=== PATIENT | female | born 1955 | race Caucasian/White ===

== ENCOUNTER → 2019-11-18 | Outpatient (CLI) | payer MEDICARE, OTHER ==
[2019-11-19 07:33] LABS: Stool Occult Bld Immuno 1 Negative (NEGATIVE)
== END ==
LOC: LAB EV 05:30
PROVIDERS: Student in an Organized Health Care Education/Training Program
DX: Z12.11 Encounter for screening for malignant neoplasm of colon (principal); E03.9 Hypothyroidism, unspecified; I10 Essential (primary) hypertension
CPT/HCPCS: G0328

== ENCOUNTER → 2020-12-22 | Outpatient (CLI) | payer MEDICARE, OTHER ==
[2020-12-22 11:00] LABS: Stool Occult Bld Immuno 1 Negative (NEGATIVE)
== END | disposition home or self-care (01) ==
LOC: LAB EV 07:07 → LAB SHORT 07:07
PROVIDERS: Student in an Organized Health Care Education/Training Program
DX: Z12.11 Encounter for screening for malignant neoplasm of colon (principal)
CPT/HCPCS: G0328

== ENCOUNTER → 2021-08-22 | Outpatient (CLI) | payer MEDICARE, OTHER ==
[2021-08-27 18:09] LABS: METANEPHRINE, UR 51 ug/L (Undefined)
[2021-08-27 19:09] LABS: DOPAMINE, URINE 88 ug/L (Undefined)
== END | disposition home or self-care (01) ==
LOC: LAB SHORT 08:00
PROVIDERS: Internal Medicine Endocrinology, Diabetes & Metabolism
DX: I10 Essential (primary) hypertension (principal)
CPT/HCPCS: 82384; 83835

== ENCOUNTER 2022-05-23 05:55 | Day surgery (SDC) | payer MEDICARE, OTHER ==
[~2022-05-23] VITALS: Ht 160 cm; Wt 85.5 kg
[~2022-05-23 05:55] MED LIST: HYDROCHLOROTHIA25 MG PO; LEVSOD25 PO; LISI20 PO; METO100ER PO
--- NOTE | 2022-05-23 07:24 | NUR ---
Ambulatory in Day Surgery. Pre-Op teaching done. Pt verbalizes understanding. Patient confirms NPO status and agrees with scheduled surgery. Patient reports completing Chlorhexadine shower X2 prior to admission to hospital. Lungs clear T/O to Auscultation.
--- NOTE | 2022-05-23 08:47 | NUR ---
05/23/22 0847 Jose A Lazaro VANCOMYCIN STARTED PRE OPERATIVELY AT 0730
--- NOTE | 2022-05-23 11:15 | NUR ---
ARRIVAL PATIENT ARRIVED TO UNIT VIA BED. VSS ON ROOM AIR. LUNGS CLEAR. X2 BULKY DRESSINGS TO R HIP, POLAR PACK TO R HIP. PATIENT HAS FULL SENSATION TO BLE, WIGGLES TOES APPROPRIATELY. TOLERATING WATER AT THIS TIME. ORIENTED TO ROOM & CALL LIGHT, WITHIN REACH.
--- NOTE | 2022-05-23 18:09 | NUR ---
SHIFT SUMMARY POD 0 R TOMASZ. X2 BULKY DRESSINGS TO R HIP/THIGH. MINIMAL PAIN, MANAGED PER EMAR. AMBULATING WELL WITH 1P ASSIST W/ FWW & GB. EATING, DRINKING, & VOIDING WELL. CALLS APPROPRIATELY, CALL LIGHT IN REACH. WILL REPORT TO ONCOMING RN.
--- NOTE | 2022-05-24 04:45 | NUR ---
FURNITURE REPRODUCER SUMMARY PT IS POD 0 R HIP REPAIR. INCISIONS C/D/I, NO DRAINAGE NOTED TO SURGICAL DRESSINGS. PT HAS REPORTED MINIMAL PAIN THAT HAS BEEN CONTROLLED WITH SCHEDULED TORADOL/TYLENOL. PT HAS VOIDED AND HAS AMBULATED IN THE HALLS MULTIPLE TIMES TONIGHT WITH A STANDBY ASSIST AND FWW/GB. CONTINUES IV ABX PER EMAR. VSS, WILL CONTINUE TO MONITOR.
[2022-05-24 04:46] LABS: BASOPHILS ABSOLUTE AUTO 0.02 K/mm3 (0.00-0.23); BASOPHILS PERCENT AUTO 0 % (0-2); EOSINOPHILS ABSOLUTE AUTO 0.01 K/mm3 (0.00-0.68); EOSINOPHILS PERCENT AUTO 0 % (0-6); Hematocrit 32.8 % (33.0-51.0); IMMATURE GRAN ABSOLUTE AUTO 0.03 K/mm3 (0.00-0.10); IMMATURE GRAN PERCENT AUTO 0 % (0-1); LYMPHOCYTES PERCENT AUTO 15 % (21-46); MONOCYTES ABSOLUTE AUTO 1.09 K/mm3 (0.16-1.47); MONOCYTES PERCENT AUTO 10 % (4-13); Mean Corpuscular HGB 29.5 pg (26.0-34.0); Mean Corpuscular HGB Conc 33.5 g/dL (31.5-36.5); Mean Corpuscular Volume 88 fL (80-100); Mean Platelet Volume 12.7 fL (9.1-12.4); NEUTROPHILS ABSOLUTE AUTO 7.81 K/mm3 (1.96-9.15); NEUTROPHILS PERCENT AUTO 74 % (41-73); Platelet Count 125 K/mm3 (150-400); RDW Coefficient Variation 15.5 % (11.7-14.2); RDW Standard Deviation 49.9 fL (35.1-46.3); Red Blood Cell Count 3.73 M/mm3 (3.80-5.20); White Blood Cell Count 10.56 K/mm3 (4.00-11.30)
[2022-05-24 05:06] LABS: Bun/Creatinine Ratio 24.1 (12.0-20.0); Calcium, Blood 8.2 mg/dL (8.5-10.1); Creatinine, Blood 1.12 mg/dL (0.40-1.00); Magnesium, Blood 1.9 mg/dL (1.6-2.4); Potassium, Blood 3.5 mmol/L (3.5-5.5)
[2022-05-24] MEDS ORDERED: ASPI81CH PO (09:10)
[2022-05-24] MEDS ORDERED: OXYC5 PO (09:10)
[2022-05-24] MEDS ORDERED: SULTRIDS PO (09:11)
[2022-05-24] MEDS ORDERED: PROM25 PO (09:11)
--- NOTE | 2022-05-24 10:00 | NUR ---
DISCHARGE PT HAS CLEARED THERAPY WELL. PAIN WELL CONTROLLED PER EMAR. AQUACEL OVER EACH INCISION, C/D/I. EATING, DRINKING, & VOIDING WELL. DISCUSSED DISCHARGE INSTRUCTIONS WITH PATIENT. DRESSINGS, DISCHARGE INSTRUCTIONS, & POLAR PACK SENT WITH PATIENT. ESCORTED OUT VIA W/C.
== END 2022-05-24 10:37 | disposition home or self-care (01) ==
LOC: ORSCMMR 05:55 → ORD 07:30 → ORSCMMR 07:30 → SURS 11:07 → ORSCMMR 05-24 10:37
PROVIDERS: Orthopaedic Surgery
PROC: 0SR90JA Replacement of Right Hip Joint with Synthetic Substitute, Uncemented, Open Approach (ICD-10-PCS; principal; 2022-05-23 07:30)
DX: M16.11 Unilateral primary osteoarthritis, right hip (principal); I10 Essential (primary) hypertension; I48.91 Unspecified atrial fibrillation; E03.9 Hypothyroidism, unspecified; Z87.891 Personal history of nicotine dependence; K21.9 Gastro-esophageal reflux disease without esophagitis; E66.9 Obesity, unspecified; Z68.33 Body mass index [BMI] 33.0-33.9, adult; Z79.899 Other long term (current) drug therapy
CPT/HCPCS: 36415; 72170; 80048; 83735; 85025; 97110; 97116; 97162; 97165; 97530; 97535; A9270; C1713; C1776; J0171; J0735; J1100; J1885; J2250; J2370; J2405; J2704; J2795; J3010; J3370; J7120